=== PATIENT | female | born 1965 | race Caucasian/White ===

== ENCOUNTER 2018-03-31 15:59 | Outpatient (CLI) | payer OTHER ==
--- NOTE | 2018-03-31 21:43 | RAD ---
CERVICAL SPINE 03/31/18 AP, lateral and open mouth views are provided. There is marked reversal of the normal cervical lordosis in the mid cervical region. This could due to muscle spasm. No fracture or dislocation was seen. The disc spaces are normal in height and the C1 to dens distance is normal. The soft tissues are normal in thickness. IMPRESSION: Severe reversal of lordosis. POS: HOME
== END 2018-03-31 16:00 | disposition home or self-care (01) ==
LOC: BURRAD 15:59
PROVIDERS: ATTEND Family Medicine
DX: M54.2 Cervicalgia (principal); M40.50 Lordosis, unspecified, site unspecified
CPT/HCPCS: 72040

== ENCOUNTER 2019-05-12 14:38 | Outpatient (CLI) | payer OTHER ==
--- NOTE | 2019-05-12 20:05 | RAD ---
RIGHT FOOT: 05/12/19 There is some degenerative changes in the intertarsal joints with some bony osteophytes seen on the d orsum of the joints and perhaps some slight joint space narrowing. Some calcaneal spurs were noted. T here was no sign of fracture or periosteal reaction. 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 POS: HOME
--- NOTE | 2019-05-12 20:06 | RAD ---
LUMBAR SPINE THREE VIEWS: 05/12/19 No fracture or disc space narrowing was seen. There is about 1 mm of anterolisthesis of L4 on L5 that appears to be due to facet arthritis. Facet arthritis is mildly prominent at the L3 through S1 level s. The SI joints appear normal. An incidental finding on the study is a large amount of fecal materia l in the colon without overt obstruction. 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 Constipation. POS: HOME
== END 2019-05-12 14:39 | disposition home or self-care (01) ==
LOC: BURRAD 14:38
PROVIDERS: ATTEND Family Medicine
DX: M47.26 Other spondylosis with radiculopathy, lumbar region (principal); M79.671 Pain in right foot; K59.00 Constipation, unspecified; M19.071 Primary osteoarthritis, right ankle and foot
CPT/HCPCS: 72100